=== PATIENT | female | born 2000 | race Caucasian/White ===

== ENCOUNTER 2024-12-19 01:02 | Emergency (ER) | payer MEDICAID ==
[~2024-12-19] VITALS: Ht 165.1 cm; Wt 56.7 kg
[2024-12-19 02:21] LABS: PREGNANCY TEST URINE QUAL NEGATIVE (NEGATIVE)
[2024-12-19 04:16] VITALS: BP 111/74; TEMP 98.2; O2SAT 97
== END 2024-12-19 04:17 | disposition home or self-care (01) ==
LOC: ER 01:05
DX: R51.9 Headache, unspecified (principal); R73.9 Hyperglycemia, unspecified
CPT/HCPCS: 70450-TC; 82962-TC; 84703-TC